=== PATIENT | female | born 1990 | race Caucasian/White ===

== ENCOUNTER 2017-12-10 14:30 | Emergency (ER) | payer SELFPAY ==
[~2017-12-10] VITALS: Ht 162.6 cm; Wt 74.8 kg
[2017-12-10] MEDS ORDERED: LAMOTRIGINE100 M1 PO (14:49)
[2017-12-10] MEDS ORDERED: SERTRALINE HCL100 MG PO (14:49)
[2017-12-10 15:49] LABS: ANION GAP 9 mmol/L (5-15); BLOOD UREA NITROGEN 9 mg/dL (7-18); CALCIUM 9.4 MG/DL (8.5-10.1); CARBON DIOXIDE 26 MMOL/L (21-32); CHLORIDE 103 MMOL/L (98-107); CREATININE 0.7 MG/DL (0.55-1.30); POTASSIUM 3.4 MMOL/L (3.5-5.1); SODIUM 138 MMOL/L (136-145)
[2017-12-10] MEDS ORDERED: Ziprasidone 20mg cap ORAL ONE (16:00)
[2017-12-10 16:01] LABS: ALANINE AMINOTRANSFERASE 23 U/L (12-78); ALBUMIN 4.4 G/DL (3.4-5.0); ALBUMIN/GLOBULIN RATIO 1.1 (1.0-2.7); ALKALINE PHOSPHATASE 63 U/L (46-116); ASPARTATE AMINO TRANSFERASE 14 U/L (15-37); BILIRUBIN,TOTAL 0.6 MG/DL (0.2-1.0)
[2017-12-10 16:02] LABS: BASOPHILS % (AUTO) 1.1 % (0.0-2.0); EOSINOPHILS % (AUTO) 1.1 % (0.0-3.0); HEMOGLOBIN 14.2 G/DL (12.0-16.0); LYMPHOCYTES % (AUTO) 30.7 % (20.0-45.0); MEAN CORPUSCULAR VOLUME 88 FL (80-99); MONOCYTES % (AUTO) 7.4 % (1.0-10.0); NEUTROPHILS % (AUTO) 59.7 % (45.0-75.0); PLATELET COUNT 343 K/UL (150-450); RED BLOOD COUNT 4.67 M/UL (4.20-5.40); RED CELL DISTRIBUTION WIDTH 12.7 % (11.6-14.8); WHITE BLOOD COUNT 6.8 K/UL (4.8-10.8)
--- NOTE | 2017-12-10 16:28 | Emergency Room Report ---
History of Present Illness General Chief Complaint: Behavioral Complaint Source: Patient Present Illness HPI This patient has a psychiatric history that is tentatively diagnosed as associative disorder. The history is primarily obtained through the patient's boyfriend who has known her for 3 years. He states that this is the most severe episode he has seen with her. She is seeing a therapist/psychiatrist and is currently on 2 psychiatric medications that she is taking. Over the past day the patient has decompensated psychiatrically. She is hearing voices that are telling her to kill herself. She is unable to function and is extremely paranoid. She does use marijuana but denies other drugs. She denies alcohol use. Her boyfriend states that she looked up the review on her current psychiatrist and has decided to no longer go to the psychiatrist because of a bad review that she saw online. Allergies: Coded Allergies: No Known Allergies (Unverified , 12/10/17) Patient History Past Medical History: none, see triage record Social History: Reports: drug use - THC; Denies: smoking, alcohol use Last Menstrual Period: Now Now: No Reviewed Nursing Documentation: PMH: Agreed; PSxH: Agreed Nursing Documentation-PMH Past Medical History: No History, Except For History Of Psychiatric Problem: Yes - PTSD, Disassociate Review of Systems All Other Systems: negative except mentioned in HPI Physical Exam Vital Signs Date Time Temp Pulse Resp B/P (MAP) Pulse Ox O2 Delivery O2 Flow Rate FiO2 12/10/17 14:38 98.6 88 20 122/83 99 Room Air Sp02 EP Interpretation: reviewed, normal General Appearance: no apparent distress, alert, GCS 15, non-toxic Head: normocephalic, atraumatic Eyes: bilateral eye normal inspection, bilateral eye PERRL ENT: hearing grossly normal, normal pharynx, no angioedema, normal voice Neck: full range of motion, supple/symm/no masses Respiratory: chest non-tender, lungs clear, normal breath sounds, no respiratory distress, no retraction, no accessory muscle use, speaking full sentences Cardiovascular #1: regular rate, rhythm, no edema Gastrointestinal: normal bowel sounds, non tender, soft, non-distended, no guarding, no rebound Rectal: deferred Musculoskeletal: back normal, gait/station normal, normal range of motion, non- tender Neurologic: alert, responsive, motor strength/tone normal, sensory intact, speech normal Psychiatric: other - Hallucinating, anxious, bizarre speech, scratching L. forearm repetitively. Skin: normal color, no rash, warm/dry, well hydrated Medical Decision Making Diagnostic Impression: Primary Impression: Psychosis ER Course This patient is gravely disabled. She clearly is in acute psychosis and is unable to function and perform activities of daily living. I am concerned this patient could harm herself and she is a danger to herself. She was placed on a medical hold pending evaluation by psychiatry. She was also given Geodon for her severe psychosis. She is medically cleared for inpatient psychiatric placement and treatment. Laboratory Tests Test 12/10/17 15:10 White Blood Count 6.8 K/UL (4.8-10.8) Red Blood Count 4.67 M/UL (4.20-5.40) Hemoglobin 14.2 G/DL (12.0-16.0) Hematocrit 41.0 % (37.0-47.0) Mean Corpuscular Volume 88 FL (80-99) Mean Corpuscular Hemoglobin 30.5 PG (27.0-31.0) Mean Corpuscular Hemoglobin Concent 34.7 G/DL (32.0-36.0) Red Cell Distribution Width 12.7 % (11.6-14.8) Platelet Count 343 K/UL (150-450) Mean Platelet Volume 5.7 FL (6.5-10.1) L Neutrophils (%) (Auto) 59.7 % (45.0-75.0) Lymphocytes (%) (Auto) 30.7 % (20.0-45.0) Monocytes (%) (Auto) 7.4 % (1.0-10.0) Eosinophils (%) (Auto) 1.1 % (0.0-3.0) Basophils (%) (Auto) 1.1 % (0.0-2.0) Urine Color Pale yellow Urine Appearance Clear Urine pH 5 (4.5-8.0) Urine Specific [place] 1.015 (1.005-1.035) Urine Protein Negative (NEGATIVE) Urine Glucose (UA) Negative (NEGATIVE) Urine Ketones 1+ (NEGATIVE) H Urine Blood Negative (NEGATIVE) Urine Nitrite Negative (NEGATIVE) Urine Bilirubin Negative (NEGATIVE) Urine Urobilinogen Normal MG/DL (0.0-1.0) Urine Leukocyte Esterase Negative (NEGATIVE) Urine HCG, Qualitative Negative (NEGATIVE) Sodium Level 138 MMOL/L (136-145) Potassium Level 3.4 MMOL/L (3.5-5.1) L Chloride Level 103 MMOL/L (98-107) Carbon Dioxide Level 26 MMOL/L (21-32) Anion Gap 9 mmol/L (5-15) Blood Urea Nitrogen 9 mg/dL (7-18) Creatinine 0.7 MG/DL (0.55-1.30) Estimate Glomerular Filtration Rate > 60 mL/min (>60) Glucose Level 80 MG/DL (74-106) Calcium Level 9.4 MG/DL (8.5-10.1) Total Bilirubin 0.6 MG/DL (0.2-1.0) Aspartate Amino Transferase (AST) 14 U/L (15-37) L Alanine Aminotransferase (ALT) 23 U/L (12-78) Alkaline Phosphatase 63 U/L (46-116) Total Protein 8.3 G/DL (6.4-8.2) H Albumin 4.4 G/DL (3.4-5.0) Globulin 3.9 g/dL Albumin/Globulin Ratio 1.1 (1.0-2.7) Thyroid Stimulating Hormone (TSH) 2.086 uiU/mL (0.358-3.740) Salicylates Level 1.2 ug/mL (2.8-20) L Urine Opiates Screen Negative (NEGATIVE) Acetaminophen Level < 2 MCG/ML (10-30) L Urine Barbiturates Screen Negative (NEGATIVE) Phencyclidine (PCP) Screen Negative (NEGATIVE) Urine Amphetamines Screen Negative (NEGATIVE) Urine Benzodiazepines Screen Negative (NEGATIVE) Urine Cocaine Screen Negative (NEGATIVE) Urine Marijuana (THC) Screen Positive (NEGATIVE) H Serum Alcohol < 3 mg/dL Last Vital Signs Date Time Temp Pulse Resp B/P (MAP) Pulse Ox O2 Delivery O2 Flow Rate FiO2 12/10/17 14:38 98.6 88 20 122/83 99 Room Air Disposition: XFER TO PSYCH HOSP/UNIT Condition: Serious Referrals: NOT CHOSEN LIA/,REFERRING (PCP) Gloria Sood DO Dec 10, 2017 16:28
[2017-12-10 16:29] LABS: APPEARANCE,URINE CLEAR; BILIRUBIN, URINE NEGATIVE (NEGATIVE); COLOR,URINE PALE YELLOW; GLUCOSE, URINE (UA) NEGATIVE (NEGATIVE); KETONES,URINE 1+ (NEGATIVE); LEUKOCYTE ESTERASE ,URINE NEGATIVE (NEGATIVE); NITRITE,URINE NEGATIVE (NEGATIVE); PH,URINE 5 (4.5-8.0); PROTEIN,URINE NEGATIVE (NEGATIVE); UROBILINOGEN,URINE NORMAL MG/DL (0.0-1.0)
[2017-12-10 16:41] VITALS: BP 125/81
[2017-12-11] VITALS (7 sets, daily range): BP systolic 100–112; BP diastolic 67–72
[2017-12-11] MEDS ORDERED: MULTIVITAMINS1 EAC8 ORAL (12:30)
[2017-12-11] MEDS ORDERED: SINEMET 25-1001 EAC1 ORAL (12:30)
[2017-12-11] MEDS ORDERED: METOPROLOL SUCC25 MG ORAL (12:30)
[2017-12-11] MEDS ORDERED: MINIPRESS1 MG PO (12:30)
[2017-12-11] MEDS ORDERED: OMEPRAZOLE40 M1 ORAL (12:30)
[2017-12-11] MEDS ORDERED: Sertraline 50mg tab ORAL ONE (22:00)
[2017-12-12 03:24] VITALS: BP 102/67
[2017-12-12 04:54] VITALS: BP 115/75
[2017-12-12 06:29] VITALS: BP 115/75
[2017-12-12 11:00] VITALS: BP 104/63
[2017-12-12] MEDS ORDERED: LORazepam 1mg tab ORAL ONE (11:45)
[2017-12-12 13:11] VITALS: BP 108/65
[2017-12-12 13:12] VITALS: BP 108/65
== END 2017-12-12 13:15 ==
LOC: EMR 15:08
DX: F23 Brief psychotic disorder (principal); R11.10 Vomiting, unspecified; F43.10 Post-traumatic stress disorder, unspecified
CPT/HCPCS: 36415; 80053; 80307; 81003; 81025; 84443; 85025; 99285; G0480; 80329